=== PATIENT | female | born 1970 | race Caucasian/White ===

== ENCOUNTER 2018-03-24 02:30 | Emergency (ER) | payer OTHER ==
--- NOTE | 2018-03-24 02:49 | ED Physician Documentation ---
Female Urogenital Problems - HISTORIAN Historian: patient - HPI Stated Complaint: burning with urination Chief Complaint: Female Urogenital Problems Onset: hours (2) Severity: mild Location of Pain: other (urinary discomfort ) Further Comments: yes (She states "about 1230 am my brother left and when I tried to pee and it hurt to pee" Denies any new sexual partners, no vaginal discharge, no fever, no blood in urine . She states once here she could urinate normally.) - Vaginal Bleeding Sexual History: active. denies: pain w/ intercourse Contraceptive: depo - Associated Symptoms Urinary Symptoms: discomfort w/ urination, burning w/ urination, pain w/ urination. denies: blood in urine, frequent urination, urgency w/ urination Discharge: denies: vaginal discharge, vaginal fluid leakage, odorous discharge, yellowish discharge - ROS CONST: none GI/: denies: nausea, vomiting, diarrhea - PAST HX Past History: other (seizures, anxiety, depression ) Surgeries/Procedures: none Immunizations: UTD Allergies/Adverse Reactions: Allergies Allergy/AdvReac Type Severity Reaction Status Date / Time No Known Drug Allergies Allergy Verified 03/24/18 02:54 Home Medications: Ambulatory Orders Medication Instructions Recorded Levetiracetam [Keppra] 1,500 mg PO BID 06/24/15 Mirtazapine [Remeron] 30 mg PO HS 06/24/15 Escitalopram Oxalate [Lexapro] 20 mg PO AM 11/06/15 Citalopram Hydrobromide [Celexa] 20 mg PO QD 03/24/18 Phenazopyridine HCl [Pyridium] 100 mg PO TID #9 tablet 03/24/18 - SOCIAL HX Smoking History: cigarettes Alcohol Use: none Drug Use: none - FAMILY HX Family History: none - VITAL SIGNS Vital Signs: Vital Signs Temp Pulse Resp BP Pulse Ox 107/64 08/21/16 00:00 - REVIEWED ASSESSMENTS Nursing Assessment Reviewed: Yes Vitals Reviewed: Yes Female Urogenital Problems - EXAM General Appearance: no acute distress, alert EENT: eye inspection normal Neck: nml inspection Respiratory: no resp. distress, breath sounds nml CVS: reg rate & rhythm, heart sounds normal, equal pulses, no murmur Abdomen: soft, non-tender, no distention, nml bowel sounds, other (no bladder tenderness ) Back: No: CVA tenderness Skin: color nml, no rash, warm,dry Extremities: non-tender, normal range of motion, no evidence of injury, no edema Neuro: oriented X3, CN's nml as tested, motor nml, sensation nml, mood/affect nml, cognition normal Discharge Clincal Impression: Dysuria Prescriptions: Phenazopyridine HCl [Pyridium] 100 mg PO TID #9 tablet Referrals: Yulia Dangelo MD [Primary Care Provider] - 2 Days Additional Instructions: 1. Pyridim 100 mg take 1 by mouth TID x 3 days 2. Increase fluids 3. Tylenol or Ibuprofen for pain 4. See PCP in 24 hours if no improvement 5. Return to ER for concerns or increasing symptoms Condition: Good Disposition: 01 HOME, SELF-CARE Decision to Admit: NO Date of Decison to Admit: 03/24/18 Decision Time: 03:01
[2018-03-24 02:54] VITALS: BP 113/64
[2018-03-24] MEDS ORDERED: PHENAZOPYRIDINE HCL 200 MG TABLET PO ONE (03:01)
[2018-03-24 08:19] LABS: APPEARANCE,URINE CLEAR (CLEAR); COLOR,URINE YELLOW (YELLOW); OCCULT BLOOD,URINE TRACE-INTACT (NEGATIVE); UROBILINOGEN URINE 0.2 Eu (0.2-1.0)
== END 2018-03-24 02:57 | disposition home or self-care (01) ==
LOC: ED 02:30
DX: R30.0 Dysuria (principal)
CPT/HCPCS: 81002; 99283